=== PATIENT | male | born 1990 | race Caucasian/White ===

== ENCOUNTER 2017-03-21 21:35 | Emergency (ER) | payer OTHER ==
[2017-03-21 21:51] VITALS: BP 101/66; PULSE 74; RESP 20; TEMP 98; O2SAT 98
--- NOTE | 2017-03-21 22:29 | C.PDOC ---
History Of Present Illness 26 year old male presents to ED with complaints of upper back pain for one week. He reports pain is worse to upper left side and worse with movement or strenuous use. He reports working for [employer] and job requires heavy lifting. He took ibuprofen with little relief. Denies any SOB, chest pain, numbness or weakness. Time Seen by Provider: 03/21/17 21:57 Chief Complaint (Nursing): Back Pain History Per: Patient History/Exam Limitations: no limitations Onset/Duration Of Symptoms: Days Quality Of Discomfort: "Pain" Severity: Mild Previous Symptoms: Back Pain Past Medical History Reviewed: Historical Data, Nursing Documentation, Vital Signs Vital Signs: Last Vital Signs Temp 98 F 03/21/17 21:50 Pulse 74 03/21/17 21:50 Resp 20 03/21/17 21:50 BP 101/66 03/21/17 21:50 Pulse Ox 98 03/21/17 21:50 - Medical History PMH: No Chronic Diseases Surgical History: No Surg Hx Family History: States: Unknown Family Hx - Social History Hx Alcohol Use: No Hx Substance Use: No - Immunization History Hx Tetanus Toxoid Vaccination: No Hx Influenza Vaccination: No Hx Pneumococcal Vaccination: No Review Of Systems Musculoskeletal: Positive for: Back Pain Physical Exam - Physical Exam Appears: Non-toxic, No Acute Distress Skin: Normal Color, Warm, Dry, No Ecchymosis Head: Atraumatic, Normacephalic Eye(s): bilateral: Normal Inspection Neck: Normal ROM, No Midline Cervical Tenderness, No Paracervical Tenderness, No Step Off Deformity Chest: Symmetrical Back: Normal Inspection, No CVA Tenderness, No Vertebral Tenderness, Muscle Spasm (left trapezius), Paraspinal Tenderness (Parathoracic muscle tenderness) Extremity: Normal ROM, No Tenderness, No Deformity, No Swelling Neurological/Psych: Oriented x3, Normal Speech ED Course And Treatment O2 Sat by Pulse Oximetry: 98 Medical Decision Making Medical Decision Making: Patient with upper back pain and muscle spasm to left side. Motrin and Flexeril given in ED. Upon re-eval he reports pain is improving. Patient advised to take analgesics and follow up outpatient Disposition Counseled Patient/Family Regarding: Diagnosis, Need For Followup, Rx Given - Disposition Disposition: HOME/ ROUTINE Disposition Time: 22:26 Condition: STABLE Additional Instructions: Follow up with your primary medical doctor or clinic in 2-5 days for further evaluation. Take medications as prescribed. Return to the emergency department at any time if symptoms persist or worsen. Prescriptions: Cyclobenzaprine [Cyclobenzaprine HCl] 10 mg PO TID #21 tab Ibuprofen [Motrin] 600 mg PO Q8 #30 tab Instructions: Muscle Spasm (ED) Forms: [facility] (Frisian) - POA Present On Arrival: None - Clinical Impression Clinical Impression: Thoracic back sprain, Muscle spasm of back - PA / SERVICE SPECIALIST / Resident Statement MD/DO has reviewed & agrees with the documentation as recorded.
== END 2017-03-21 22:38 | disposition home or self-care (01) ==
LOC: C.ER 21:35
DX: S23.3XXA Sprain of ligaments of thoracic spine, initial encounter (principal); X50.0XXA Overexertion from strenuous movement or load, initial encounter; Y93.89 Activity, other specified; Y92.89 Other specified places as the place of occurrence of the external cause; M62.830 Muscle spasm of back